=== PATIENT | male | born 1955 | race Caucasian/White ===

== ENCOUNTER 2017-05-24 16:02 | Inpatient (IN) | payer BC, OTHER ==
[2017-05-24] MEDS ORDERED: Albuterol/Ipratropium 3.0-0.5 MG/3 ML Neb Soln NEB ONE (16:31)
[2017-05-24] MEDS ORDERED: Sodium Chloride 0.9% 10 ML Syringe FLUSH PRN ×2 (16:31→17:53)
--- NOTE | 2017-05-24 16:35 | EDM.PDOC ---
ED HPI GENERAL MEDICAL PROBLEM - General Chief Complaint: Respiratory Problem Stated Complaint: ASTHMA Time Seen by Provider: 05/24/17 16:25 Source of Information: Reports: Patient History Limitations: Reports: No Limitations - History of Present Illness INITIAL COMMENTS - FREE TEXT/NARRATIVE: Patient is a 61-year-old male presents to the ED complaining of shortness of breath. Patient states this has been getting progressively worse over the past week. He has some underlying chronic lung disease with unknown diagnosis. States he did smoke for many years up until this past January. He has been taking albuterol inhaler, similar, and also inhaled steroids as prescribed. States today due to increasing shortness of breath he was seen at the [place] [facility] and administered albuterol neb treatment, steroid injection, and doxycycline. He states he felt better for approximately 3 hours then started experiencing increasing short of breath. States his chest feels tight with onset of shortness of breath. Upon admission to the ED patient is only speaking in 2-4 words sentences with pursed lips. O2 saturation 85% on room air. O2 sats increased with O2 via nasal cannula. Patient has a chronic cough unchanged. Chest pressure/tightness does not radiate. No fever. No history of blood clots to his lungs or legs. Chest Pain Score (Numeric/FACES): 4 - Related Data Allergies Allergy/AdvReac Type Severity Reaction Status Date / Time No Known Allergies Allergy Verified 05/24/17 16:17 Home Meds: Home Meds . [No Known Home Meds] 05/24/17 [History] Albuterol [Ventolin HFA] 2 puff INH Q4HR PRN 05/24/17 [History] Doxycycline [Doxycycline Monohydrate] 100 mg PO BID 05/24/17 [History] Ipratropium/Albuterol Sulfate [Iprat-Albut 0.5-3(2.5) mg/3 ml] 3 ml INH Q6HR PRN 05/24/17 [History] Lisinopril 10 mg PO DAILY 05/24/17 [History] Montelukast [Singulair] 10 mg PO DAILY 05/24/17 [History] Past Medical History Respiratory History: Reports: Asthma, Sleep Apnea Musculoskeletal History: Reports: Fracture Other Musculoskeletal History: previous rib fx's Oncologic (Cancer) History: Reports: Prostate - Past Surgical History HEENT Surgical History: Reports: Other (See Below) Social & Family History - Tobacco Use Smoking Status *Q: Current Every Day Smoker Years of Tobacco use: 42 Packs/Tins Daily: 2 Second Hand Smoke Exposure: No - Recreational Drug Use Recreational Drug Use: No - Living Situation & Occupation Living situation: Reports: , with Family Occupation: Employed ED ROS GENERAL - Review of Systems Review Of Systems: ROS reveals no pertinent complaints other than HPI. ED EXAM, GENERAL - Physical Exam Exam: See Below Exam Limited By: No Limitations General Appearance: Alert, WD/WN, Other (Family short of breath with pursed lips breathing.) Ears: Hearing Grossly Normal Nose: Normal Inspection Throat/Mouth: Normal Voice, No Airway Compromise Head: Atraumatic, Normocephalic Neck: Normal Inspection, Supple Respiratory/Chest: No Respiratory Distress, No Accessory Muscle Use, Other ( Poor air movement with coarse crackles and expiratory wheezing more prominent in the right lung field.) Cardiovascular: Normal Peripheral Pulses, No Murmur, Tachycardia Peripheral Pulses: 4+: Radial (L) GI/Abdominal: Normal Bowel Sounds, Soft, Non-Tender, No Organomegaly, No Distention Extremities: Non-Tender, Normal Capillary Refill, Other (Swelling noted to the left leg secondary to varicose veins surgery. Chronic no new changes. No posterior thigh tenderness with palpation.) Neurological: Alert, Oriented, CN II-XII Intact, Normal Cognition, No Motor/ Sensory Deficits Psychiatric: Normal Affect, Normal Mood Skin Exam: Warm, Dry, Intact, Normal Color Course - Vital Signs Last Recorded V/S: Last Vital Signs Temp 98.6 F 05/24/17 20:50 Pulse 97 05/24/17 20:34 Resp 22 H 05/24/17 20:34 BP 171/99 H 05/24/17 20:34 Pulse Ox 94 L 05/24/17 20:34 - Orders/Labs/Meds Orders: Active Orders 24 hr Category Date Time Status Chest 1V Frontal [CR] Stat Exams 05/24/17 16:31 Taken Sodium Chloride 0.9% [Normal Saline] 100 ml Med 05/24/17 18:00 Active IV ASDIRECTED Sodium Chloride 0.9% [Saline Flush] Med 05/24/17 16:31 Active 10 ml FLUSH ASDIRECTED PRN Sodium Chloride 0.9% [Saline Flush] Med 05/24/17 17:53 Active 10 ml FLUSH ONETIME PRN Peripheral IV Insertion Adult [OM.PC] Stat Oth 05/24/17 16:31 Ordered Medication Orders Acetaminophen (Tylenol) 650 mg PO Q4H PRN PRN Reason: Pain (Mild 1-3)/fever Hydrocodone Bitart/Acetaminophen ([place] 325-5 Mg) 1 tab PO Q4H PRN PRN Reason: Pain (moderate 4-6) Albuterol/Ipratropium (Duoneb 3.0-0.5 Mg/3 Ml) 3 ml NEB Q4H PRN PRN Reason: Shortness Of Breath/wheezing Azithromycin (Zithromax) 250 mg PO DAILY [facility]NIS Bisacodyl (Dulcolax) 5 mg PO DAILY PRN PRN Reason: Constipation Docusate Sodium (Colace) 100 mg PO BID PRN PRN Reason: Constipation Enoxaparin Sodium (Lovenox) 40 mg SUBCUT DAILY [facility] Hydralazine HCl (Apresoline) 20 mg IVPUSH Q4H PRN PRN Reason: Hypertension Sodium Chloride (Normal Saline) 100 mls @ 65 mls/hr IV ASDIRECTED [facility] Last Admin: 05/24/17 18:32 Dose: 65 mls/hr Promethazine HCl 12.5 mg/ (Sodium Chloride) 50.5 mls @ 100 mls/hr IV Q6H PRN PRN Reason: Nausea/Vomiting Azithromycin 500 mg/ Sodium (Chloride) 250 mls @ 250 mls/hr IV ONETIME ONE Stop: 05/24/17 23:08 Lisinopril (Prinivil) 10 mg PO DAILY [facility] Lorazepam (Ativan) 1 mg IV Q6H PRN PRN Reason: Anxiety Lorazepam (Ativan) 2 mg IVPUSH Q4H PRN PRN Reason: Seizures Magnesium Sulfate (Pharmacy To Dose - Magnesium Replacement) 1 dose .XX ASDIRECTED [facility] Metoprolol Tartrate (Lopressor) 5 mg IVPUSH Q4H PRN PRN Reason: Tachycardia Montelukast Sodium (Singulair) 10 mg PO DAILY [facility] Ondansetron HCl (Zofran) 4 mg IV Q6H PRN PRN Reason: Nausea/Vomiting Pantoprazole Sodium (Protonix Iv) 40 mg .XX ONETIME ONE Stop: 05/24/17 22:01 Polyethylene Glycol (Miralax) 17 gm PO DAILY PRN PRN Reason: Constipation Potassium Chloride (Pharmacy To Dose - Potassium Replacement) 1 dose .XX ASDIRECTED DENNIS Prednisone (Prednisone) 60 mg PO WITHBREAKFAST [facility]NIS Senna/Docusate Sodium (Senna Plus) 1 tab PO BID PRN PRN Reason: Constipation Sodium Chloride (Saline Flush) 10 ml FLUSH ASDIRECTED PRN PRN Reason: Keep Vein Open Last Admin: 05/24/17 17:14 Dose: 10 ml Sodium Chloride (Saline Flush) 10 ml FLUSH ONETIME PRN PRN Reason: IV FLUSH Last Admin: 05/24/17 18:32 Dose: 10 ml Temazepam (Restoril) 15 mg PO BEDTIME PRN PRN Reason: Sleep Labs: Laboratory Tests 05/24/17 05/24/17 05/24/17 Range/Units 16:30 16:30 16:58 WBC 8.09 (4.23-9.07) K/mm3 RBC 5.23 (4.63-6.08) M/mm3 Hgb 15.9 (13.7-17.5) gm/L Hct 49.1 (40.1-51.0) % MCV 93.9 H (79.0-92.2) fl MCH 30.4 (25.7-32.2) pg MCHC 32.4 (32.2-35.5) g/dl RDW Std Deviation 47.0 H (35.1-43.9) fL Plt Count 219 (163-337) K/mm3 MPV 9.3 L (9.4-12.3) fl Neut % (Auto) 91.7 H (34.0-67.9) % Lymph % (Auto) 6.6 L (21.8-53.1) % [place] % (Auto) 0.7 L (5.3-12.2) % Eos % (Auto) 0.1 L (0.8-7.0) Baso % (Auto) 0.4 (0.1-1.2) % Neut # (Auto) 7.42 H (1.78-5.38) K/mm3 Lymph # (Auto) 0.53 L (1.32-3.57) K/mm3 [place] # (Auto) 0.06 L (0.30-0.82) K/mm3 Eos # (Auto) 0.01 L (0.04-0.54) K/mm3 Baso # (Auto) 0.03 (0.01-0.08) K/mm3 Manual Slide Review Normal smear Puncture Site Lt radial ABG pH 7.43 (7.35-7.45) ABG pCO2 39.2 (35.0-45.0) mmHg ABG pO2 56.0 L (80.0-100.0) mmHg ABG HCO3 25.5 (22.0-26.0) meq/L ABG O2 Saturation 90.7 L (96.0-97.0) % ABG Base Excess 1.7 (-2-2.0) Raman Test Positive A-a Gradient 74 mmHg O2 Delivery Device Nasal cannula Oxygen Flow Rate 2.0 FiO2 28.00 (21.00-100.00) % Sodium 141 (136-145) mEq/L Potassium 4.4 (3.5-5.1) mEq/L Chloride 103 (98-107) mEq/L Carbon Dioxide 26 (21-32) mEq/L Anion Gap 16.4 H (5-15) BUN 20 H (7-18) mg/dL Creatinine 1.2 (0.7-1.3) mg/dL Est Cr Clr Drug Dosing 67.11 mL/min Estimated GFR (MDRD) > 60 (>60) mL/min BUN/Creatinine Ratio 16.7 (14-18) Glucose 192 H (80-115) mg/dL Calcium 9.1 (8.5-10.1) mg/dL Total Bilirubin 0.4 (0.2-1.0) mg/dL AST 26 (15-37) U/L ALT 39 (16-63) U/L Alkaline Phosphatase 63 (46-116) U/L Troponin I < 0.017 (0.00-0.056) ng/mL C-Reactive Protein < 0.2 (<1.0) mg/dL Total Protein 7.4 (6.4-8.2) g/dl Albumin 3.6 (3.4-5.0) g/dl Globulin 3.8 gm/dL Albumin/Globulin Ratio 1.0 (1-2) Meds: Medications Generic Name Dose Route Start Last Admin Trade Name Freq PRN Reason Stop Dose Admin Acetaminophen 650 mg 02/18/18 22:00 Tylenol PO Q4H PRN Pain (Mild 1-3)/fever Hydrocodone Bitart/Acetaminophen 1 tab 05/24/17 22:00 [place] 325-5 Mg PO Q4H PRN Pain (moderate 4-6) Albuterol/Ipratropium 3 ml 05/24/17 22:00 Duoneb 3.0-0.5 Mg/3 Ml NEB Q4H PRN Shortness Of Breath/wheezing Azithromycin 250 mg 05/25/17 09:00 Zithromax PO DAILY [facility] Bisacodyl 5 mg 05/24/17 22:00 Dulcolax PO DAILY PRN Constipation Docusate Sodium 100 mg 05/24/17 22:00 Colace PO BID PRN Constipation Enoxaparin Sodium 40 mg 05/25/17 09:00 Lovenox SUBCUT DAILY [facility] Hydralazine HCl 20 mg 05/24/17 22:07 Apresoline IVPUSH Q4H PRN Hypertension Sodium Chloride 100 mls @ 65 mls/hr 05/24/17 18:00 05/24/17 18:32 Normal Saline IV 65 mls/hr ASDIRECTED [facility] Administration Promethazine HCl 12.5 mg/ 50.5 mls @ 100 mls/hr 05/24/17 22:00 Sodium Chloride IV Q6H PRN Nausea/Vomiting Azithromycin 500 mg/ Sodium 250 mls @ 250 mls/hr 05/24/17 22:09 Chloride IV 05/24/17 23:08 ONETIME ONE Lisinopril 10 mg 05/25/17 09:00 Prinivil PO DAILY [facility] Lorazepam 1 mg 05/24/17 22:00 Ativan IV Q6H PRN Anxiety Lorazepam 2 mg 05/24/17 22:07 Ativan IVPUSH Q4H PRN Seizures Magnesium Sulfate 1 dose 05/24/17 22:15 Pharmacy To Dose - Magnesium Replacement .XX ASDIRECTED [facility] Metoprolol Tartrate 5 mg 05/24/17 22:07 Lopressor IVPUSH Q4H PRN Tachycardia Montelukast Sodium 10 mg 05/25/17 09:00 Singulair PO DAILY [facility] Ondansetron HCl 4 mg 05/24/17 22:00 Zofran IV Q6H PRN Nausea/Vomiting Pantoprazole Sodium 40 mg 05/24/17 22:00 Protonix Iv .XX 05/24/17 22:01 ONETIME ONE Polyethylene Glycol 17 gm 05/24/17 22:00 Miralax PO DAILY PRN Constipation Potassium Chloride 1 dose 05/24/17 22:15 Pharmacy To Dose - Potassium Replacement .XX ASDIRECTED [facility] Prednisone 60 mg 05/25/17 07:00 Prednisone PO WITHBREAKFAST DENNIS Senna/Docusate Sodium 1 tab 05/24/17 22:00 Senna Plus PO BID PRN Constipation Sodium Chloride 10 ml 05/24/17 16:31 05/24/17 17:14 Saline Flush FLUSH 10 ml ASDIRECTED PRN Administration Keep Vein Open Sodium Chloride 10 ml 05/24/17 17:53 05/24/17 18:32 Saline Flush FLUSH 10 ml ONETIME PRN Administration IV FLUSH Temazepam 15 mg 05/24/17 22:00 Restoril PO BEDTIME PRN Sleep Discontinued Medications Generic Name Dose Route Start Last Admin Trade Name Freq PRN Reason Stop Dose Admin Albuterol/Ipratropium 3 ml 05/24/17 16:31 05/24/17 16:49 Duoneb 3.0-0.5 Mg/3 Ml NEB 05/24/17 16:32 3 ml ONETIME ONE Administration Iopamidol 100 ml 05/24/17 17:53 05/24/17 18:32 [id number] (76%) IVPUSH 05/24/17 17:54 100 ml ONETIME ONE Administration Iopamidol 50 ml 05/24/17 17:53 05/24/17 18:32 [id number] (76%) IVPUSH 05/24/17 17:54 50 ml ONETIME ONE Administration Levalbuterol HCl 1.25 mg 05/24/17 18:40 05/24/17 18:54 Xopenex NEB 05/24/17 18:41 1.25 mg ONETIME ONE Administration Pneumococcal Polyvalent Vaccine 0.5 ml 05/24/17 21:12 Pneumovax 23 IM 05/24/17 21:13 .ONCE ONE Prednisone 60 mg 05/24/17 19:17 05/24/17 19:27 Prednisone PO 05/24/17 19:18 60 mg ONETIME ONE Administration - Re-Assessments/Exams Free Text/Narrative Re-Assessment/Exam: IV established. Initial labs and studies include: CBC, chem 14, blood gas, CRP, d-dimer, troponin, chest x-ray one view, and EKG. Ordered DuoNeb treatment. EKG sinus rhythm with no acute ST changes noted. Chest x-ray shows possible infiltrate noted to the right lower lung base and also left hilar region. No cardiomegaly. Old #7 right rib fracture. Hyperinflation lung spears. Final interpretation is pending. Labs reviewed: White blood cell count 8.09, hemoglobin 15.9, platelet count is 219, neutrophil percentage is 91.7, neutrophil number is 7.42, AG 16.4, albumin 20, creatinine 1.2, glucose 182, troponin less than 0.017, CRP less than 0.2. Blood gas: PH 7.43, PCO2 39.2, PO2 50 60, HCO3 25.5, O2 saturation 90.7 low, via nasal cannula [address] angios of the chest will be obtained. Ordered levalbuterol neb treatment. CTangio is still pending. CT angios chest impression: No findings of pulmonary embolus. Slight fibrosis with in both lung bases and mild emphysematous change is seen within both lungs. No acute pulmonary densities are seen. 190 patient's nasal cannula was discontinued. Breathing through pursed lips. O2 sats decreased to 87 on room air while at rest. O2 via Nasal cannula 2 L/m started. Discussed admission to the hospital for hypoxiaand exacerbation of COPD. Patient is agreement. Will contact Dr. Lovett. Ordered prednisone 60mg PO. 05/24/17 19:[address] 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 He has agreed to admit. MCG will be completed. Departure - Departure Time of Disposition: 19:23 Disposition: Admitted As Inpatient 64 Condition: Fair Clinical Impression: Hypoxia, Shortness of breath - Discharge Information - My Orders Last 24 Hours: My Active Orders 05/24/17 16:31 Chest 1V Frontal [CR] Stat Sodium Chloride 0.9% [Saline Flush] 10 ml FLUSH ASDIRECTED PRN Peripheral IV Insertion Adult [OM.PC] Stat 05/24/17 17:53 Sodium Chloride 0.9% [Saline Flush] 10 ml FLUSH ONETIME PRN 05/24/17 18:00 Sodium Chloride 0.9% [Normal Saline] 100 ml IV ASDIRECTED - Assessment/Plan Last 24 Hours: My Active Orders 05/24/17 16:31 Chest 1V Frontal [CR] Stat Sodium Chloride 0.9% [Saline Flush] 10 ml FLUSH ASDIRECTED PRN Peripheral IV Insertion Adult [OM.PC] Stat 05/24/17 17:53 Sodium Chloride 0.9% [Saline Flush] 10 ml FLUSH ONETIME PRN 05/24/17 18:00 Sodium Chloride 0.9% [Normal Saline] 100 ml IV ASDIRECTED
[2017-05-24] MEDS ORDERED: Iopamidol 755 MG/ML 50 ML Bottle IVPUSH ONE (17:53)
[2017-05-24] MEDS ORDERED: Iopamidol 755 Mg/ML 100 ML Bottle IVPUSH ONE (17:53)
[2017-05-24] MEDS ORDERED: Sodium Chloride 0.9% 100 ML IV SCH (18:00)
[2017-05-24] MEDS ORDERED: Levalbuterol HCl 1.25 MG/0.5 ML Neb NEB ONE (18:40)
--- NOTE | 2017-05-24 18:59 | CT ---
CT chest Technique: Multiple axial sections through the chest were obtained. Intravenous contrast was utilized. Study has been performed as a pulmonary angiogram protocol. Comparison: Prior chest CT of 09/09/15. Findings: Pulmonary arteries are well-opacified. No filling defects are seen to indicate pulmonary embolism. Mildly prominent lymph nodes are seen within the right hilum and within the mediastinum. These appear to be fairly stable from previous CT exam and likely represent change from old inflammatory process. Small portion of the visualized upper abdominal structures are within normal limits. No pericardial thickening is seen. Minimal fibrosis is seen within both lung bases. Mild emphysematous change is seen. No acute parenchymal densities are seen. Impression: 1. No findings of pulmonary embolism. 2. Slight fibrosis within both lung bases and mild emphysematous change is seen within both lungs. 3. No acute pulmonary densities are seen. Diagnostic code #3
[2017-05-24] MEDS ORDERED: predniSONE 20 MG Tab PO ONE (19:17)
[2017-05-24] MEDS ORDERED: Pneumococcal Polyvalent-23 Vaccine 0.5 ML SDV IM ONE (21:12)
[2017-05-24] MEDS ORDERED: Promethazine 12.5 MG in Sodium Chloride 0.9% 50 ML IV PRN (22:00)
[2017-05-24] MEDS ORDERED: Temazepam 15 MG Cap PO PRN (22:00)
[2017-05-24] MEDS ORDERED: Acetaminophen/HYDROcodone 325-5 MG Tab PO PRN (22:00)
[2017-05-24] MEDS ORDERED: Docusate Sodium 100 MG Cap PO PRN (22:00)
[2017-05-24] MEDS ORDERED: LORazepam 2 MG/ML SDV IV PRN (22:00)
[2017-05-24] MEDS ORDERED: Acetaminophen 325 MG Tab PO PRN (22:00)
[2017-05-24] MEDS ORDERED: Polyethylene Glycol 3350 Powder 17 GM Packet PO PRN (22:00)
[2017-05-24] MEDS ORDERED: Ondansetron 4 MG/2 ML SDV IV PRN (22:00)
[2017-05-24] MEDS ORDERED: Bisacodyl 5 MG Tab PO PRN (22:00)
[2017-05-24] MEDS ORDERED: hydrALAZINE 20 MG/ML SDV IVPUSH PRN (22:07)
[2017-05-24] MEDS ORDERED: Metoprolol Tartrate 5 MG/5 ML SDV IVPUSH PRN (22:07)
[2017-05-24] MEDS ORDERED: LORazepam 2 MG/ML SDV IVPUSH PRN (22:07)
--- NOTE | 2017-05-24 22:11 | PCM.HP ---
H&P History of Present Illness - General Date of Service: 05/24/17 Admit Problem/Dx: Admission Diagnosis/Problem Admission Diagnosis/Problem Hypoxia Source of Information: Patient, Provider, RN Notes Reviewed History Limitations: Reports: Respiratory Distress - History of Present Illness Initial Comments - Free Text/Narative: This is a 61 yo white male with past medical hx/o Asthma/RAD and HTN who presents to ED with worsening shortness of breath that has been going on over the past week. He carries a hx/o heavy smoking for many years but quit 2 months ago. He has a neb at home to use for asthma attack. Patient was seen over at [facility] clinic. Over there, he received some breathing treatment but did not last long before his symptom re-occurred. His symptom is associated with dyspnea/chest tightness and chronic cough. On presentation to ED, he was found with an O2 sat of 85% and only able to speak 2-4 words only. His initial work up in ED shows, a CBC remarkable for MCV of 92.9, RDW 47, neutrophils of 91.7%, lymphocytes of 6.6%, monocytes of 0.7%, and eosinophils of 0.1%. His ABG shows a pH of 7.43, PCO2 of 39.2, PO2 of 56, HCO3 of 25.5, O2 sat of 90.7 on 3 L nasal cannula with an FiO2 of 28. He is chemistry is remarkable for anion gap of 16.4, BUN of 20, glucose of 192. His troponin and CRP are within normal limits. His chest x-ray shows no acute abnormal findings. His chest CTA report reads no pulmonary embolism. Slight fibrosis within both lungs bases and mild emphysematous change is seen within both lungs. No acute pulmonary densities are seen. Patient is being admitted for exacerbation of reactive airway disease. He is full code. Chest Pain Score (Numeric/FACES): 4 - Related Data Allergies/Adverse Reactions: Allergies Allergy/AdvReac Type Severity Reaction Status Date / Time No Known Allergies Allergy Verified 05/24/17 16:17 Home Medications: Home Meds . [No Known Home Meds] 05/24/17 [History] Albuterol [Ventolin HFA] 2 puff INH Q4HR PRN 05/24/17 [History] Doxycycline [Doxycycline Monohydrate] 100 mg PO BID 05/24/17 [History] Ipratropium/Albuterol Sulfate [Iprat-Albut 0.5-3(2.5) mg/3 ml] 3 ml INH Q6HR PRN 05/24/17 [History] Lisinopril 10 mg PO DAILY 05/24/17 [History] Montelukast [Singulair] 10 mg PO DAILY 05/24/17 [History] Past Medical History HEENT History: Reports: None Cardiovascular History: Reports: High Cholesterol, Hypertension Respiratory History: Reports: Asthma, Bronchitis, Recurrent, Sleep Apnea Gastrointestinal History: Reports: Colon Polyp, Hemorrhoids Genitourinary History: Reports: None Musculoskeletal History: Reports: Fracture Other Musculoskeletal History: previous rib fx's Neurological History: Reports: None Psychiatric History: Reports: None Hematologic History: Reports: None Oncologic (Cancer) History: Reports: Prostate Dermatologic History: Reports: None - Infectious Disease History Infectious Disease History: Reports: None - Past Surgical History HEENT Surgical History: Reports: Other (See Below) Other HEENT Surgeries/Procedures: sleep apnea surgery Cardiovascular Surgical History: Reports: Varicose, Other (See Below) Other Cardiovascular Surgeries/Procedures: bilateral legs Respiratory Surgical History: Reports: None GI Surgical History: Reports: Appendectomy, Other (See Below) Other GI Surgeries/Procedures: polyps removed Male Surgical History: Reports: Prostatectomy Musculoskeletal Surgical History: Reports: None Dermatological Surgical History: Reports: None Social & Family History - Family History Family Medical History: Noncontributory - Tobacco Use Smoking Status *Q: Current Every Day Smoker Years of Tobacco use: 40 Packs/Tins Daily: 1.5 Used Tobacco, but Quit: No Month Tobacco Last Used: january Second Hand Smoke Exposure: Yes - Caffeine Use Caffeine Use: Reports: Coffee - Alcohol Use Days Per Week of Alcohol Use: 1 Number of Drinks Per Day: 2 Total Drinks Per Week: 2 - Recreational Drug Use Recreational Drug Use: No - Living Situation & Occupation Living situation: Reports: , with Family Occupation: Employed H&P Review of Systems - Review of Systems: Review Of Systems: See Below General: Denies: Fever, Chills, Malaise, Weakness, Fatigue HEENT: Reports: No Symptoms Pulmonary: Reports: Shortness of Breath Cardiovascular: Reports: Dyspnea on Exertion. Denies: Chest Pain Gastrointestinal: Denies: Abdominal Pain, Decreased Appetite, Nausea, Vomiting Genitourinary: Reports: No Symptoms Musculoskeletal: Reports: No Symptoms Skin: Reports: Bruising, Rash, Wound. Denies: Cyanosis, Mottled, Pallor, Diaphoresis, Erythema Psychiatric: Denies: Confusion, Depression, Anxiety, Hallucinations, Suicidal Ideation Neurological: Denies: Confusion, Difficulty Walking, Weakness, Gait Disturbance Hematologic/Lymphatic: Reports: No Symptoms Immunologic: Reports: No Symptoms Exam - Exam Exam: See Below - Vital Signs Vital Signs: Last Vital Signs Temp 37.0 C 05/24/17 20:50 Pulse 97 05/24/17 20:34 Resp 22 H 05/24/17 20:34 BP 171/99 H 05/24/17 20:34 Pulse Ox 94 L 05/24/17 20:34 Weight: 114.895 kg - Exam General: Alert, Oriented, Cooperative, Mild Distress, Other (Obese) HEENT: Conjunctiva Clear, EACs Clear, EOMI, Hearing Intact, Mucosa Moist & [place] , Nares Patent, Normal Nasal Septum, Posterior Pharynx Clear, Pupils Equal, Pupils Reactive Neck: Supple, Trachea Midline, +2 Carotid Pulse wo Bruit Lungs: Clear to Auscultation, Normal Respiratory Effort Cardiovascular: Regular Rate, Regular Rhythm GI/Abdominal Exam: Normal Bowel Sounds, Soft, Non-Tender, No Organomegaly, No Distention, No Abnormal Bruit, No Mass, Pelvis Stable, Other (Obese) (Male) Exam: Deferred Rectal (Males) Exam: Deferred Back Exam: Normal Inspection, Decreased Range of Motion Extremities: Normal Range of Motion, Non-Tender, No Pedal Edema, Normal Capillary Refill, Redness (right lower extremity). No: Normal Inspection, Harry 's Sign, Increased Warmth Peripheral Pulses: 2+: Posterior Tibial (R), Dorsalis Pedis (R), 3+: Posterior Tibial (L), Dorsalis Pedis (L) Skin: Warm, Dry, Intact, Rash Skin Alteration Location (Drawings Not To Scale): 1 - skin rash - diffuse with multiple lesions Neuro Extensive - Mental Status: Oriented x3, Normal Cognition, Memory Intact Neuro Extensive - Motor, Sensory, Reflexes: CN II-XII Intact, Normal Gait Psychiatric: Alert, Normal Affect, Normal Mood - Patient Data Result Diagrams: 05/25/17 05:40 05/25/17 05:40 *Q Meaningful Use (ADM) - VTE *Q VTE Criteria *Q: - Stroke *Q Stroke Criteria *Q: - AMI *Q AMI Criteria *Q: Problem List Initiated/Reviewed/Updated: Yes Orders Last 24hrs: Active Orders 24 hr Category Date Time Status Cardiac Monitoring [RC] CONTINUOUS Care 05/24/17 22:04 Ordered Height and Weight [RC] DAILY Care 05/24/17 22:00 Ordered Intake and Output [RC] QSHIFT Care 05/24/17 22:04 Ordered Oxygen Therapy [RC] PRN Care 05/24/17 22:03 Ordered Pulse Oximetry [RC] PRN Care 05/24/17 22:04 Ordered RT Aerosol Therapy [RC] ASDIRECTED Care 05/24/17 22:05 Ordered Up ad Sabrina [RC] ASDIRECTED Care 05/24/17 22:00 Ordered VTE/DVT Education [RC] PER UNIT ROUTINE Care 05/24/17 22:03 Ordered Vital Signs [RC] Q4H Care 05/24/17 22:03 Ordered Consult to Case Management [CONS] Routine Cons 05/24/17 22:06 Ordered Consult to Solar [employer] He[employer] Installer [CONS] Routine Cons 05/24/17 22:06 Ordered Consult to Spiritual Care [CONS] Routine Cons 05/24/17 22:06 Ordered Respiratory Care Assess and Treatment [CONS] Routine Cons 05/24/17 22:06 Ordered Regular Diet [DIET] Diet 05/24/17 Dinner Ordered Echo Comp wo Cont [US] Routine Exams 05/25/17 07:00 Ordered BASIC METABOLIC PANEL,BMP [CHEM] AM Lab 05/25/17 05:11 Ordered BASIC METABOLIC PANEL,BMP [CHEM] AM Lab 05/26/17 05:11 Ordered BASIC METABOLIC PANEL,BMP [CHEM] AM Lab 05/27/17 05:11 Ordered BASIC METABOLIC PANEL,BMP [CHEM] AM Lab 05/28/17 05:11 Ordered BASIC METABOLIC PANEL,BMP [CHEM] AM Lab 05/29/17 05:11 Ordered BASIC METABOLIC PANEL,BMP [CHEM] AM Lab 05/30/17 05:11 Ordered C-REACTIVE PROTEIN [CHEM] AM Lab 05/25/17 05:11 Ordered C-REACTIVE PROTEIN [CHEM] AM Lab 05/26/17 05:11 Ordered C-REACTIVE PROTEIN [CHEM] AM Lab 05/27/17 05:11 Ordered C-REACTIVE PROTEIN [CHEM] AM Lab 05/28/17 05:11 Ordered C-REACTIVE PROTEIN [CHEM] AM Lab 05/29/17 05:11 Ordered C-REACTIVE PROTEIN [CHEM] AM Lab 05/30/17 05:11 Ordered CBC WITH AUTO DIFF [HEME] AM Lab 05/25/17 05:11 Ordered CBC WITH AUTO DIFF [HEME] AM Lab 05/26/17 05:11 Ordered CBC WITH AUTO DIFF [HEME] AM Lab 05/27/17 05:11 Ordered CBC WITH AUTO DIFF [HEME] AM Lab 05/28/17 05:11 Ordered CBC WITH AUTO DIFF [HEME] AM Lab 05/29/17 05:11 Ordered CBC WITH AUTO DIFF [HEME] AM Lab 05/30/17 05:11 Ordered MAGNESIUM [CHEM] AM Lab 05/25/17 05:11 Ordered MAGNESIUM [CHEM] AM Lab 05/26/17 05:11 Ordered MAGNESIUM [CHEM] AM Lab 05/27/17 05:11 Ordered MAGNESIUM [CHEM] AM Lab 05/28/17 05:11 Ordered MAGNESIUM [CHEM] AM Lab 05/29/17 05:11 Ordered MAGNESIUM [CHEM] AM Lab 05/30/17 05:11 Ordered Acetaminophen [Tylenol] Med 05/24/17 22:00 Ordered 650 mg PO Q4H PRN Acetaminophen/HYDROcodone [[place] 325-5 MG] Med 05/24/17 22:00 Ordered 1 tab PO Q4H PRN Albuterol/Ipratropium [DuoNeb 3.0-0.5 MG/3 ML] Med 05/24/17 22:00 Ordered 3 ml NEB Q4H PRN Azithromycin [Zithromax] Med 05/25/17 09:00 Ordered 250 mg PO DAILY Azithromycin [Zithromax] 500 mg Med 05/24/17 22:09 Ordered Sodium Chloride 0.9% [Normal Saline] 250 ml IV ONETIME Bisacodyl [Dulcolax] Med 05/24/17 22:00 Ordered 5 mg PO DAILY PRN Docusate Sodium [Colace] Med 05/24/17 22:00 Ordered 100 mg PO BID PRN Docusate Sodium/Sennosides [Senna Plus] Med 05/24/17 22:00 Ordered 1 tab PO BID PRN Enoxaparin [Lovenox] Med 05/25/17 09:00 Ordered 40 mg SUBCUT DAILY LORazepam [Ativan] Med 05/24/17 22:00 Ordered 1 mg IV Q6H PRN LORazepam [Ativan] Med 05/24/17 22:07 Ordered 2 mg IVPUSH Q4H PRN Lisinopril [Prinivil] Med 05/25/17 09:00 Ordered 10 mg PO DAILY Magnesium Rep Pharmacy to Dose [Pharmacy to Dose - Med 05/24/17 22:15 Ordered Magnesium Replacement] 1 dose .XX ASDIRECTED Metoprolol Tartrate [Lopressor] Med 05/24/17 22:07 Ordered 5 mg IVPUSH Q4H PRN Montelukast [Singulair] Med 05/25/17 09:00 Ordered 10 mg PO DAILY Ondansetron [Zofran] Med 05/24/17 22:00 Ordered 4 mg IV Q6H PRN Pantoprazole [ProTONIX IV] Med 05/24/17 22:00 Once 40 mg .XX ONETIME ONE Polyethylene Glycol 3350 [MiraLAX] Med 05/24/17 22:00 Ordered 17 gm PO DAILY PRN Potassium Rep Pharmacy to Dose [Pharmacy to Dose - Med 05/24/17 22:15 Ordered Potassium Replacement] 1 dose .XX ASDIRECTED Promethazine [Phenergan] 12.5 mg Med 05/24/17 22:00 Ordered Sodium Chloride 0.9% [Normal Saline] 50 ml IV Q6H Temazepam [Restoril] Med 05/24/17 22:00 Ordered 15 mg PO BEDTIME PRN hydrALAZINE [Apresoline] Med 05/24/17 22:07 Ordered 20 mg IVPUSH Q4H PRN predniSONE Med 05/25/17 07:00 Ordered 60 mg PO WITHBREAKFAST Resuscitation Status Routine Resus Stat 05/24/17 22:00 Ordered Medication Orders Acetaminophen (Tylenol) 650 mg PO Q4H PRN PRN Reason: Pain (Mild 1-3)/fever Hydrocodone Bitart/Acetaminophen ([place] 325-5 Mg) 1 tab PO Q4H PRN PRN Reason: Pain (moderate 4-6) Albuterol/Ipratropium (Duoneb 3.0-0.5 Mg/3 Ml) 3 ml NEB Q4H PRN PRN Reason: Shortness Of Breath/wheezing Azithromycin (Zithromax) 250 mg PO DAILY [facility] Bisacodyl (Dulcolax) 5 mg PO DAILY PRN PRN Reason: Constipation Docusate Sodium (Colace) 100 mg PO BID PRN PRN Reason: Constipation Enoxaparin Sodium (Lovenox) 40 mg SUBCUT DAILY [facility] Hydralazine HCl (Apresoline) 20 mg IVPUSH Q4H PRN PRN Reason: Hypertension Sodium Chloride (Normal Saline) 100 mls @ 65 mls/hr IV ASDIRECTED [facility] Last Admin: 05/24/17 18:32 Dose: 65 mls/hr Promethazine HCl 12.5 mg/ (Sodium Chloride) 50.5 mls @ 100 mls/hr IV Q6H PRN PRN Reason: Nausea/Vomiting Azithromycin 500 mg/ Sodium (Chloride) 250 mls @ 250 mls/hr IV ONETIME ONE Stop: 05/24/17 23:08 Lisinopril (Prinivil) 10 mg PO DAILY [facility] Lorazepam (Ativan) 1 mg IV Q6H PRN PRN Reason: Anxiety Lorazepam (Ativan) 2 mg IVPUSH Q4H PRN PRN Reason: Seizures Magnesium Sulfate (Pharmacy To Dose - Magnesium Replacement) 1 dose .XX ASDIRECTED [facility] Metoprolol Tartrate (Lopressor) 5 mg IVPUSH Q4H PRN PRN Reason: Tachycardia Montelukast Sodium (Singulair) 10 mg PO DAILY [facility] Ondansetron HCl (Zofran) 4 mg IV Q6H PRN PRN Reason: Nausea/Vomiting Pantoprazole Sodium (Protonix Iv) 40 mg .XX ONETIME ONE Stop: 05/24/17 22:01 Polyethylene Glycol (Miralax) 17 gm PO DAILY PRN PRN Reason: Constipation Potassium Chloride (Pharmacy To Dose - Potassium Replacement) 1 dose .XX ASDIRECTED [facility] Prednisone (Prednisone) 60 mg PO WITHBREAKFAST [facility] Senna/Docusate Sodium (Senna Plus) 1 tab PO BID PRN PRN Reason: Constipation Sodium Chloride (Saline Flush) 10 ml FLUSH ASDIRECTED PRN PRN Reason: Keep Vein Open Last Admin: 05/24/17 17:14 Dose: 10 ml Sodium Chloride (Saline Flush) 10 ml FLUSH ONETIME PRN PRN Reason: IV FLUSH Last Admin: 05/24/17 18:32 Dose: 10 ml Temazepam (Restoril) 15 mg PO BEDTIME PRN PRN Reason: Sleep Assessment/Plan Comment:: Assessment/Plan: Acute: RAD/Asthma Exacerbation - Has not had PFT in past - No formal diagnosis of COPD; will do PFT it in AM - Supplemental O2, Bronchodilators, Anti-inflammatory agent, Oral Steroids and Routine RT Care Interstitial Lung Disease - 2/2 Idiopathic Pulmonary Fibrosis - Risk factors: Hx/o Asthma, Smokers and Works in [employer] - CT scan: Slight fibrosis within both lung bases and mild emphysematous changes seen within both lungs - No good treatment but will provide supportive care - May benefit with Esbriet (pirfenidone) or OFEV (nintedanib)-defer to pulmonology - He need PFT to assess for RAD/COPD - He needs to see Pulmonology outpatient Nicotine Use Disorder - Smokes 1.5 ppd but quit 2 months Ago - No need for smoking cessation Chronic: Asthma/RAD SUZANNE Lower Extremity Skin Rash Prostate Disorder Hx/o Heavy Smoking Plan: Admit to the floor Routine AM Labs Resume Home Meds except Doxy 2D echo in AM for baseline and r/o Pulmonary HTN Topical steroid BID for skin rash RT consult PFT in AM SW/CM for d/c planning Needs Pulmonology eval after D/c Code status: 1
[2017-05-24] MEDS ORDERED: Pantoprazole 40 MG Vial ONE (22:30)
[2017-05-24] MEDS ORDERED: Azithromycin 500 MG in Sodium Chloride 0.9% 250 ML IV ONE (22:30)
[2017-05-25] MEDS: predniSONE 20 MG Tab PO SCH (06:36)
--- NOTE | 2017-05-25 08:25 | CR ---
Chest: Frontal view of the chest was obtained utilizing portable technique. Comparison: Prior chest x-ray of 09/04/15. Lung markings are slightly increased which appear stable from previous exam. Heart size is normal. Upper mediastinum within normal limits. Bony structures are grossly intact. Impression: 1. Nothing acute is appreciated on portable chest x-ray. Diagnostic code #2
[2017-05-25] MEDS: Azithromycin 250 MG Tab PO SCH (08:26)
[2017-05-25] MEDS: Montelukast 10 MG Tab PO SCH (08:26)
[2017-05-25] MEDS: Lisinopril 10 MG Tab PO SCH (08:26)
[2017-05-25] MEDS: Enoxaparin 40 MG/0.4 ML Syringe SUBCUT SCH (08:26)
[2017-05-25] MEDS ORDERED: Albuterol 0.083% 2.5 MG/3 ML Neb Soln NEB ONE (08:50)
--- NOTE | 2017-05-25 11:25 | PCM.PN ---
- General Info Date of Service: 05/25/17 Admission Dx/Problem (Free Text): Admission Diagnosis/Problem Admission Diagnosis/Problem Hypoxia Subjective Update: Follow Up Functional Status: Reports: Pain Controlled, Tolerating Diet, Ambulating, Urinating. Denies: New Symptoms - Review of Systems General: Denies: Fever, Weakness, Fatigue, Malaise HEENT: Reports: No Symptoms Pulmonary: Reports: Shortness of Breath. Denies: Cough, Sputum Cardiovascular: Denies: Chest Pain, Palpitations, Dyspnea on Exertion, Edema, Lightheadedness Gastrointestinal: Reports: No Symptoms. Denies: Abdominal Pain, Constipation, Decreased Appetite, Difficulty Swallowing, Nausea, Vomiting Genitourinary: Reports: No Symptoms Musculoskeletal: Reports: No Symptoms Skin: Reports: Rash. Denies: Cyanosis, Mottled, Pallor, Diaphoresis Neurological: Denies: Confusion, Difficulty Walking, Weakness, Gait Disturbance Psychiatric: Denies: Depression, Anxiety, Agitation, Hallucinations Systems Review Comment:: No significant overnight or acute issues. He slept pretty good last night. He feels much better this morning. He has no new complaints. - Patient Data Vitals - Most Recent: Last Vital Signs Temp 36.9 C 05/25/17 07:34 Pulse 78 05/25/17 07:34 Resp 19 05/25/17 07:34 BP 123/68 05/25/17 08:26 Pulse Ox 93 L 05/25/17 07:34 Weight - Most Recent: 114.895 kg I&O - Last 24 Hours: Intake & Output 05/24/17 05/25/17 05/25/17 22:59 06:59 14:59 Intake Total 250 180 Balance 250 180 Lab Results Last 24 Hours: Laboratory Results - last 24 hr 05/25/17 05/25/17 Range/Units 05:40 05:40 WBC 12.78 H (4.23-9.07) K/mm3 RBC 5.07 (4.63-6.08) M/mm3 Hgb 15.3 (13.7-17.5) gm/L Hct 47.2 (40.1-51.0) % MCV 93.1 H (79.0-92.2) fl MCH 30.2 (25.7-32.2) pg MCHC 32.4 (32.2-35.5) g/dl RDW Std Deviation 46.9 H (35.1-43.9) fL Plt Count 235 (163-337) K/mm3 MPV 9.5 (9.4-12.3) fl Neut % (Auto) 90.8 H (34.0-67.9) % Lymph % (Auto) 6.2 L (21.8-53.1) % [place] % (Auto) 2.7 L (5.3-12.2) % Eos % (Auto) 0 L (0.8-7.0) Baso % (Auto) 0.1 (0.1-1.2) % Neut # (Auto) 11.60 H (1.78-5.38) K/mm3 Lymph # (Auto) 0.79 L (1.32-3.57) K/mm3 [place] # (Auto) 0.35 (0.30-0.82) K/mm3 Eos # (Auto) 0.00 L (0.04-0.54) K/mm3 Baso # (Auto) 0.01 (0.01-0.08) K/mm3 Manual Slide Review Abnormal smear Sodium 144 (136-145) mEq/L Potassium 4.7 (3.5-5.1) mEq/L Chloride 109 H (98-107) mEq/L Carbon Dioxide 25 (21-32) mEq/L Anion Gap 14.7 (5-15) BUN 19 H (7-18) mg/dL Creatinine 0.8 (0.7-1.3) mg/dL Est Cr Clr Drug Dosing 100.66 mL/min Estimated GFR (MDRD) > 60 (>60) mL/min BUN/Creatinine Ratio 23.8 H (14-18) Glucose 140 H (80-115) mg/dL Calcium 8.8 (8.5-10.1) mg/dL Magnesium 2.0 (1.8-2.4) mg/dl C-Reactive Protein < 0.2 (<1.0) mg/dL Med Orders - Current: Current Medications Acetaminophen (Tylenol) 650 mg PO Q4H PRN PRN Reason: Pain (Mild 1-3)/fever Hydrocodone Bitart/Acetaminophen ([place] 325-5 Mg) 1 tab PO Q4H PRN PRN Reason: Pain (moderate 4-6) Albuterol/Ipratropium (Duoneb 3.0-0.5 Mg/3 Ml) 3 ml NEB Q4H PRN PRN Reason: Shortness Of Breath/wheezing Azithromycin (Zithromax) 250 mg PO DAILY [facility] Last Admin: 05/25/17 08:26 Dose: 250 mg Bisacodyl (Dulcolax) 5 mg PO DAILY PRN PRN Reason: Constipation Docusate Sodium (Colace) 100 mg PO BID PRN PRN Reason: Constipation Enoxaparin Sodium (Lovenox) 40 mg SUBCUT DAILY [facility] Last Admin: 05/25/17 08:26 Dose: 40 mg Hydralazine HCl (Apresoline) 20 mg IVPUSH Q4H PRN PRN Reason: Hypertension Promethazine HCl 12.5 mg/ (Sodium Chloride) 50.5 mls @ 100 mls/hr IV Q6H PRN PRN Reason: Nausea/Vomiting Lisinopril (Prinivil) 10 mg PO DAILY [facility] Last Admin: 05/25/17 08:26 Dose: 10 mg Lorazepam (Ativan) 1 mg IV Q6H PRN PRN Reason: Anxiety Lorazepam (Ativan) 2 mg IVPUSH Q4H PRN PRN Reason: Seizures Magnesium Sulfate (Pharmacy To Dose - Magnesium Replacement) 1 dose .XX ASDIRECTED [facility] Metoprolol Tartrate (Lopressor) 5 mg IVPUSH Q4H PRN PRN Reason: Tachycardia Montelukast Sodium (Singulair) 10 mg PO DAILY [facility] Last Admin: 05/25/17 08:26 Dose: 10 mg Ondansetron HCl (Zofran) 4 mg IV Q6H PRN PRN Reason: Nausea/Vomiting Polyethylene Glycol (Miralax) 17 gm PO DAILY PRN PRN Reason: Constipation Potassium Chloride (Pharmacy To Dose - Potassium Replacement) 1 dose .XX ASDIRECTED [facility] Prednisone (Prednisone) 60 mg PO WITHBREAKFAST [facility] Last Admin: 05/25/17 06:36 Dose: 60 mg Senna/Docusate Sodium (Senna Plus) 1 tab PO BID PRN PRN Reason: Constipation Sodium Chloride (Saline Flush) 10 ml FLUSH ASDIRECTED PRN PRN Reason: Keep Vein Open Last Admin: 05/24/17 17:14 Dose: 10 ml Sodium Chloride (Saline Flush) 10 ml FLUSH ONETIME PRN PRN Reason: IV FLUSH Last Admin: 05/24/17 18:32 Dose: 10 ml Temazepam (Restoril) 15 mg PO BEDTIME PRN PRN Reason: Sleep Triamcinolone Acetonide (Triamcinolone Acetonide 0.5%) 15 gm TOP BID [facility] Discontinued Medications Albuterol (Proventil Neb Soln) 2.5 mg NEB ONETIME ONE Stop: 05/25/17 08:51 Last Admin: 05/25/17 08:52 Dose: 2.5 mg Albuterol/Ipratropium (Duoneb 3.0-0.5 Mg/3 Ml) 3 ml NEB ONETIME ONE Stop: 05/24/17 16:32 Last Admin: 05/24/17 16:49 Dose: 3 ml Sodium Chloride (Normal Saline) 100 mls @ 65 mls/hr IV ASDIRECTED [facility]NIS Last Admin: 05/24/17 18:32 Dose: 65 mls/hr Azithromycin 500 mg/ Sodium (Chloride) 250 mls @ 250 mls/hr IV ONETIME ONE Stop: 05/24/17 23:29 Last Admin: 18 22:49 Dose: 250 mls/hr Iopamidol (Isovue-370 (76%)) 100 ml IVPUSH ONETIME ONE Stop: 05/24/17 17:54 Last Admin: 18 18:32 Dose: 100 ml Iopamidol (Isovue-370 (76%)) 50 ml IVPUSH ONETIME ONE Stop: 18 17:54 Last Admin: 18 18:32 Dose: 50 ml Levalbuterol HCl (Xopenex) 1.25 mg NEB ONETIME ONE Stop: 05/24/17 18:41 Last Admin: 18 18:54 Dose: 1.25 mg Pantoprazole Sodium (Protonix Iv) 40 mg .XX ONETIME ONE Stop: 05/24/17 22:31 Last Admin: 05/24/17 22:46 Dose: 40 mg Pneumococcal Polyvalent Vaccine (Pneumovax 23) 0.5 ml IM .ONCE ONE Stop: 05/24/17 21:13 Prednisone (Prednisone) 60 mg PO ONETIME ONE Stop: 05/24/17 19:18 Last Admin: 05/24/17 19:27 Dose: 60 mg - Exam Quality Assessment: Supplemental Oxygen General: Alert, Oriented, Cooperative, No Acute Distress, Other (Obese) HEENT: Pupils Equal, Pupils Reactive, EOMI, Mucous Membr. Moist/[place] Neck: Supple, Trachea Midline Lungs: Normal Respiratory Effort, Wheezing (mild) Cardiovascular: Regular Rate, Regular Rhythm GI/Abdominal Exam: Normal Bowel Sounds, Soft, Non-Tender, No Organomegaly, No Distention, No Abnormal Bruit, No Mass, Other (Obese) (Male) Exam: Deferred Back Exam: Normal Inspection, Decreased Range of Motion Extremities: Normal Inspection, Normal Range of Motion, Non-Tender, No Pedal Edema, Normal Capillary Refill Peripheral Pulses: 2+: Posterior Tibial (R), Dorsalis Pedis (R) Skin: Warm, Dry, Intact, Rash (right [place]ateral [place]) Neurological: No New Focal Deficit Psy/Mental Status: Alert, Normal Affect, Normal Mood - Problem List Review Problem List Initiated/Reviewed/Updated: Yes - My Orders Last 24 Hours: My Active Orders 05/24/17 22:00 Height and Weight [RC] 04 Up ad Sabrina [RC] ASDIRECTED Acetaminophen [Tylenol] 650 mg PO Q4H PRN Acetaminophen/HYDROcodone [[place] 325-5 MG] 1 tab PO Q4H PRN Albuterol/Ipratropium [DuoNeb 3.0-0.5 MG/3 ML] 3 ml NEB Q4H PRN Bisacodyl [Dulcolax] 5 mg PO DAILY PRN Docusate Sodium [Colace] 100 mg PO BID PRN Docusate Sodium/Sennosides [Senna Plus] 1 tab PO BID PRN LORazepam [Ativan] 1 mg IV Q6H PRN Ondansetron [Zofran] 4 mg IV Q6H PRN Polyethylene Glycol 3350 [MiraLAX] 17 gm PO DAILY PRN Promethazine [Phenergan] 12.5 mg Sodium Chloride 0.9% [Normal Saline] 50 ml IV Q6H Temazepam [Restoril] 15 mg PO BEDTIME PRN Resuscitation Status Routine 05/24/17 22:03 Oxygen Therapy [RC] PRN VTE/DVT Education [RC] PER UNIT ROUTINE Vital Signs [RC] Q4HR 05/24/17 22:04 Cardiac Monitoring [RC] CONTINUOUS Intake and Output [RC] 04,16 Pulse Oximetry [RC] PRN 05/24/17 22:05 RT Aerosol Therapy [RC] ASDIRECTED 05/24/17 22:06 Consult to Case Management [CONS] Routine Consult to Bread Distributor [CONS] Routine Consult to Spiritual Care [CONS] Routine Respiratory Care Assess and Treatment [CONS] Routine 05/24/17 22:07 LORazepam [Ativan] 2 mg IVPUSH Q4H PRN Metoprolol Tartrate [Lopressor] 5 mg IVPUSH Q4H PRN hydrALAZINE [Apresoline] 20 mg IVPUSH Q4H PRN 05/24/17 22:15 Magnesium Rep Pharmacy to Dose [Pharmacy to Dose - Magnesium Replacement] 1 dose .XX ASDIRECTED Potassium Rep Pharmacy to Dose [Pharmacy to Dose - Potassium Replacement] 1 dose .XX ASDIRECTED 05/24/17 Dinner Regular Diet [DIET] 05/25/17 07:00 Echo Comp wo Cont [US] Routine predniSONE 60 mg PO WITHBREAKFAST PFT with Bronchodilator [RT Spirometry with Bronchodilator] [RESPCARE] Routine 05/25/17 08:43 RT Aerosol Therapy [RC] ASDIRECTED 05/25/17 09:00 Azithromycin [Zithromax] 250 mg PO DAILY Enoxaparin [Lovenox] 40 mg SUBCUT DAILY Lisinopril [Prinivil] 10 mg PO DAILY Montelukast [Singulair] 10 mg PO DAILY Triamcinolone Acetonide [Triamcinolone Acetonide 0.5%] 15 gm TOP BID 05/26/17 05:11 BASIC METABOLIC PANEL,BMP [CHEM] AM C-REACTIVE PROTEIN [CHEM] AM CBC WITH AUTO DIFF [HEME] AM MAGNESIUM [CHEM] AM 05/27/17 05:11 BASIC METABOLIC PANEL,BMP [CHEM] AM C-REACTIVE PROTEIN [CHEM] AM CBC WITH AUTO DIFF [HEME] AM MAGNESIUM [CHEM] AM 05/28/17 05:11 BASIC METABOLIC PANEL,BMP [CHEM] AM C-REACTIVE PROTEIN [CHEM] AM CBC WITH AUTO DIFF [HEME] AM MAGNESIUM [CHEM] AM 05/29/17 05:11 BASIC METABOLIC PANEL,BMP [CHEM] AM C-REACTIVE PROTEIN [CHEM] AM CBC WITH AUTO DIFF [HEME] AM MAGNESIUM [CHEM] AM 05/30/17 05:11 BASIC METABOLIC PANEL,BMP [CHEM] AM C-REACTIVE PROTEIN [CHEM] AM CBC WITH AUTO DIFF [HEME] AM MAGNESIUM [CHEM] AM - Plan Plan:: Assessment/Plan: Acute: Interstitial Lung Disease - Likely 2/2 Idiopathic Pulmonary Fibrosis - Risk factors: Hx/o Asthma/RAD, Smokers and Works in [employer] - CT scan: Slight fibrosis within both lung bases and mild emphysematous changes seen within both lungs - No good treatment but will provide supportive care - May benefit with Esbriet (pirfenidone) or OFEV (nintedanib)-defer to pulmonology - Completed PFT-see report - He needs to see Pulmonology outpatient Severe COPD - Newly diagnosed - PFT shows FEV1 of 44 % Predicted (Severe Obstructive Airways Disease) - Continue Oral steroids, bronchodilators, anti-inflammatory agent, supplemental O2 and routine RT care - O2 assess at rest and with activity Nicotine Use Disorder - Smokes 1.5 ppd but quit 2 months Ago - No need for smoking cessation Chronic: Asthma/RAD SUZANNE not on CPAP Lower Extremity Skin Rash Prostate Disorder Plan: He is clinically better Continue current treatment Routine AM Labs 2D echo in AM for baseline Continue RT SW/CM for d/c planning Needs Pulmonology eval after D/c Code status: 1 Possible d/c in AM
[2017-05-25] MEDS: Triamcinolone Acetonide 0.5% Crm 15 GM Tube TOP SCH ×2 (11:29→21:27)
[2017-05-25] MEDS: Albuterol/Ipratropium 3.0-0.5 MG/3 ML Neb Soln NEB PRN ×2 (11:59→16:28)
[2017-05-26] MEDS: predniSONE 20 MG Tab PO SCH (06:30)
[2017-05-26] MEDS: Albuterol/Ipratropium 3.0-0.5 MG/3 ML Neb Soln NEB PRN ×2 (06:42→11:10)
[2017-05-26] MEDS ORDERED: Tiotropium Inhaler 18 MCG Inhalation Powder Cap Kit of 5 INH SCH (09:00)
[2017-05-26] MEDS: Triamcinolone Acetonide 0.5% Crm 15 GM Tube TOP SCH (09:30)
[2017-05-26] MEDS: Lisinopril 10 MG Tab PO SCH (09:31)
[2017-05-26] MEDS: Enoxaparin 40 MG/0.4 ML Syringe SUBCUT SCH (09:31)
[2017-05-26] MEDS: Montelukast 10 MG Tab PO SCH (09:31)
[2017-05-26] MEDS: Azithromycin 250 MG Tab PO SCH (09:32)
--- NOTE | 2017-05-26 09:53 | PCM.DCSUM1 ---
Discharge Summary - Hospital Course Brief History: This is a 61 yo white male with past medical hx/o Asthma/RAD and HTN who presents to ED with worsening shortness of breath that has been going on over the past week. He carries a hx/o heavy smoking for many years but quit 2 months ago. He has a neb at home to use for asthma attack. - Discharge Data Discharge Date: 05/26/17 Discharge Disposition: Home, Self-Care 01 Condition: Good - Discharge Diagnosis/Problem(s) (1) COPD (chronic obstructive pulmonary disease) SNOMED Code(s): 64407065 ICD Code: J44.9 - CHRONIC OBSTRUCTIVE PULMONARY DISEASE, UNSPECIFIED Status : Acute Qualifiers: COPD type: emphysema Emphysema type: unspecified Qualified Code(s): J43.9 - Emphysema, unspecified (2) ILD (interstitial lung disease) SNOMED Code(s): 968454671 ICD Code: J84.9 - INTERSTITIAL PULMONARY DISEASE, UNSPECIFIED Status: Acute - Patient Summary/Data Operative Procedure(s) Performed: None Complications: None Consults: Consultations 05/24/17 22:06 Consult to Case Management [CONS] Routine Consult to Associate Research Scientist [CONS] Routine Consult to Spiritual Care [CONS] Routine Respiratory Care Assess and Treatment [CONS] Routine Labs Pending at D/C: None Recommended Follow-up Testing/Procedures: None Planned Operative Procedure(s) after DC: None Hospital Course: Patient was primarily admitted for medical management of COPD due to underlying interstitial lung disease. He carried a history of heavy smoking as well as working in the [employer]. His PFT confirmed severe obstructive lung disease and his chest CT scan showed pulmonary fibrosis. He was put on steroids, bronchodilators, expectorant, decongestant and cough suppressant to improve his symptom. The patient improved on this regimen. His hospital course was uncomplicated and the rest of his chronic illness remained stable during this admission. Patient was stable upon discharge. He was discharged with advair, cough suppressant and supplemental O2 for his COPD. He was also provided with steroid cream to use for his skin rash. The patient was advised to see pulmonology after discharge and to follow-up with his PCP in one week. On the day of discharge, he was again counseled about smoking cessation. He was offered nicotine patch but patient quit 2 months ago and expressed no intentions of going back to smoking. - Patient Instructions Diet: Usual Diet as Tolerated Activity: As Tolerated Driving: May Drive Today Showering/Bathing: May Shower Notify Provider of: Fever, Nausea and/or Vomiting Other/Special Instructions: - Please take all new medications as directed. - Continue to stay away from smoking or using any tobacco products. - Call or follow up with your family doctor for any questions or concerns after discharge. - Recommend you see a lung specialist in [place] afer discharge. - Follow up with your doctor in 1 week - Discharge Plan Prescriptions/Med Rec: Benzonatate [Tessalon Perle] 100 mg PO TID #90 capsule Fluticasone/Salmeterol [Advair HFA 115-21 MCG] 2 puff INH BID #1 inhaler Triamcinolone Acetonide [Triamcinolone Acetonide 0.5%] 15 gm TOP BID #1 tube Home Medications: Home Meds Albuterol [Ventolin HFA] 2 puff INH Q4HR PRN 05/24/17 [History] Ipratropium/Albuterol Sulfate [Iprat-Albut 0.5-3(2.5) mg/3 ml] 3 ml INH Q6HR PRN 05/24/17 [History] Lisinopril 10 mg PO DAILY 05/24/17 [History] Montelukast [Singulair] 10 mg PO DAILY 05/24/17 [History] Benzonatate [Tessalon Perle] 100 mg PO TID #90 capsule 05/26/17 [Rx] Fluticasone/Salmeterol [Advair HFA 115-21 MCG] 2 puff INH BID #1 inhaler [Rx] Triamcinolone Acetonide [Triamcinolone Acetonide 0.5%] 15 gm TOP BID #1 tube [Rx] Patient Handouts: Chronic Obstructive Pulmonary Disease, [id number] Referrals: Itz Hernandez MD [Ordering Only Provider] - 06/25/17 11:45 am (Pulmonology: This appt. is in [place] time. Please arrive at 11:45 to check in and breathing test scheduled at 12:30 and you will see the doctor at 2p.m. This appointment is for pulomonolgist) Tiana Barnard NP [Primary Care Provider] - - Discharge Summary/Plan Comment DC Time >30 min.: Yes (45 mins) Discharge Summary/Plan Comment: Discharge to Home - General Info Date of Service: 05/26/17 Admission Dx/Problem (Free Text: Admission Diagnosis/Problem Admission Diagnosis/Problem Hypoxia Subjective Update: Follow Up Functional Status: Reports: Pain Controlled, Tolerating Diet, Ambulating, Urinating. Denies: New Symptoms - Review of Systems General: Denies: Fever, Weakness, Fatigue, Malaise, Chills HEENT: Reports: No Symptoms Pulmonary: Denies: Shortness of Breath, Cough, Sputum, Wheezing Cardiovascular: Denies: Chest Pain, Palpitations, Dyspnea on Exertion, Orthopnea , Edema, Lightheadedness Gastrointestinal: Reports: [place]. Denies: Abdominal Pain, Constipation, Diarrhea, Nausea, Vomiting Genitourinary: Reports: No Symptoms Musculoskeletal: Reports: No Symptoms Skin: Denies: Cyanosis, Mottled, Pallor, Diaphoresis Neurological: Denies: Confusion, Weakness, Gait Disturbance Psychiatric: Denies: Depression, Anxiety, Agitation, Hallucinations Systems Review Comment: No overnight or acute issues. He slept pretty good and overall feels better. He has no new complaints. - Patient Data Vitals - Most Recent: Last Vital Signs Temp 36.4 C 05/26/17 07:43 Pulse 65 05/26/17 07:43 Resp 17 05/26/17 07:43 BP 127/79 05/26/17 09:31 Pulse Ox 89 L 05/26/17 08:16 Weight - Most Recent: 112.973 kg I&O - Last 24 hours: Intake & Output 05/25/17 05/26/17 05/26/17 22:59 06:59 14:59 Intake Total 780 400 Output Total 560 200 Balance 220 200 Lab Results - Last 24 hrs: Laboratory Results - last 24 hr 05/26/17 05/26/17 Range/Units 07:30 07:30 WBC 10.32 H (4.23-9.07) K/mm3 RBC 4.94 (4.63-6.08) M/mm3 Hgb 15.4 (13.7-17.5) gm/L Hct 47.7 (40.1-51.0) % MCV 96.6 H (79.0-92.2) fl MCH 31.2 (25.7-32.2) pg MCHC 32.3 (32.2-35.5) g/dl RDW Std Deviation 52.0 H (35.1-43.9) fL Plt Count 222 (163-337) K/mm3 MPV 9.4 (9.4-12.3) fl Neut % (Auto) 71.8 H (34.0-67.9) % Lymph % (Auto) 16.7 L (21.8-53.1) % [place] % (Auto) 10.5 (5.3-12.2) % Eos % (Auto) 0.8 (0.8-7.0) Baso % (Auto) 0.2 (0.1-1.2) % Neut # (Auto) 7.42 H (1.78-5.38) K/mm3 Lymph # (Auto) 1.72 (1.32-3.57) K/mm3 [place] # (Auto) 1.08 H (0.30-0.82) K/mm3 Eos # (Auto) 0.08 (0.04-0.54) K/mm3 Baso # (Auto) 0.02 (0.01-0.08) K/mm3 Sodium 144 (136-145) mEq/L Potassium 4.9 (3.5-5.1) mEq/L Chloride 106 (98-107) mEq/L Carbon Dioxide 31 (21-32) mEq/L Anion Gap 11.9 (5-15) BUN 28 H (7-18) mg/dL Creatinine 1.0 (0.7-1.3) mg/dL Est Cr Clr Drug Dosing 80.53 mL/min Estimated GFR (MDRD) > 60 (>60) mL/min BUN/Creatinine Ratio 28.0 H (14-18) Glucose 99 (80-115) mg/dL Calcium 8.8 (8.5-10.1) mg/dL Magnesium 2.2 (1.8-2.4) mg/dl C-Reactive Protein < 0.2 (<1.0) mg/dL Med Orders - Current: Current Medications Acetaminophen (Tylenol) 650 mg PO Q4H PRN PRN Reason: Pain (Mild 1-3)/fever Hydrocodone Bitart/Acetaminophen ([place] 325-5 Mg) 1 tab PO Q4H PRN PRN Reason: Pain (moderate 4-6) Albuterol/Ipratropium (Duoneb 3.0-0.5 Mg/3 Ml) 3 ml NEB Q4H PRN PRN Reason: Shortness Of Breath/wheezing Last Admin: 05/26/17 06:42 Dose: 3 ml Azithromycin (Zithromax) 250 mg PO DAILY [facility] Last Admin: 05/26/17 09:32 Dose: 250 mg Bisacodyl (Dulcolax) 5 mg PO DAILY PRN PRN Reason: Constipation Docusate Sodium (Colace) 100 mg PO BID PRN PRN Reason: Constipation Enoxaparin Sodium (Lovenox) 40 mg SUBCUT DAILY [facility] Last Admin: 05/26/17 09:31 Dose: 40 mg Hydralazine HCl (Apresoline) 20 mg IVPUSH Q4H PRN PRN Reason: Hypertension Promethazine HCl 12.5 mg/ (Sodium Chloride) 50.5 mls @ 100 mls/hr IV Q6H PRN PRN Reason: Nausea/Vomiting Lisinopril (Prinivil) 10 mg PO DAILY [facility] Last Admin: 05/26/17 09:31 Dose: 10 mg Lorazepam (Ativan) 1 mg IV Q6H PRN PRN Reason: Anxiety Lorazepam (Ativan) 2 mg IVPUSH Q4H PRN PRN Reason: Seizures Magnesium Sulfate (Pharmacy To Dose - Magnesium Replacement) 1 dose .XX ASDIRECTED [facility] Metoprolol Tartrate (Lopressor) 5 mg IVPUSH Q4H PRN PRN Reason: Tachycardia Montelukast Sodium (Singulair) 10 mg PO DAILY [facility] Last Admin: 05/26/17 09:31 Dose: 10 mg Ondansetron HCl (Zofran) 4 mg IV Q6H PRN PRN Reason: Nausea/Vomiting Polyethylene Glycol (Miralax) 17 gm PO DAILY PRN PRN Reason: Constipation Potassium Chloride (Pharmacy To Dose - Potassium Replacement) 1 dose .XX ASDIRECTED [facility] Prednisone (Prednisone) 60 mg PO WITHBREAKFAST [facility] Last Admin: 05/26/17 06:30 Dose: 60 mg Senna/Docusate Sodium (Senna Plus) 1 tab PO BID PRN PRN Reason: Constipation Sodium Chloride (Saline Flush) 10 ml FLUSH ASDIRECTED PRN PRN Reason: Keep Vein Open Last Admin: 05/24/17 17:14 Dose: 10 ml Sodium Chloride (Saline Flush) 10 ml FLUSH ONETIME PRN PRN Reason: IV FLUSH Last Admin: 05/24/17 18:32 Dose: 10 ml Temazepam (Restoril) 15 mg PO BEDTIME PRN PRN Reason: Sleep Tiotropium [place] (Spiriva Handihaler) 18 mcg INH DAILY [facility] Last Admin: 05/26/17 08:16 Dose: 1 cap Triamcinolone Acetonide (Triamcinolone Acetonide 0.5%) 15 gm TOP BID [facility] Last Admin: 05/26/17 09:30 Dose: 1 applic Discontinued Medications Albuterol (Proventil Neb Soln) 2.5 mg NEB ONETIME ONE Stop: 05/25/17 08:51 Last Admin: 05/25/17 08:52 Dose: 2.5 mg Albuterol/Ipratropium (Duoneb 3.0-0.5 Mg/3 Ml) 3 ml NEB ONETIME ONE Stop: 05/24/17 16:32 Last Admin: 05/24/17 16:49 Dose: 3 ml Sodium Chloride (Normal Saline) 100 mls @ 65 mls/hr IV ASDIRECTED [facility] Last Admin: 05/24/17 18:32 Dose: 65 mls/hr Azithromycin 500 mg/ Sodium (Chloride) 250 mls @ 250 mls/hr IV ONETIME ONE Stop: 05/24/17 23:29 Last Admin: 05/24/17 22:49 Dose: 250 mls/hr Iopamidol (Isovue-370 (76%)) 100 ml IVPUSH ONETIME ONE Stop: 05/24/17 17:54 Last Admin: 18 18:32 Dose: 100 ml Iopamidol (Isovue-370 (76%)) 50 ml IVPUSH ONETIME ONE Stop: 05/24/17 17:54 Last Admin: 05/24/17 18:32 Dose: 50 ml Levalbuterol HCl (Xopenex) 1.25 mg NEB ONETIME ONE Stop: 05/24/17 18:41 Last Admin: 05/24/17 18:54 Dose: 1.25 mg Pantoprazole Sodium (Protonix Iv) 40 mg .XX ONETIME ONE Stop: 05/24/17 22:31 Last Admin: 05/24/17 22:46 Dose: 40 mg Pneumococcal Polyvalent Vaccine (Pneumovax 23) 0.5 ml IM .ONCE ONE Stop: 05/24/17 21:13 Prednisone (Prednisone) 60 mg PO ONETIME ONE Stop: 05/24/17 19:18 Last Admin: 05/24/17 19:27 Dose: 60 mg - Exam Quality Assessment: Reports: Supplemental Oxygen General: Reports: Alert, Oriented, Cooperative, No Acute Distress HEENT: Reports: Pupils Equal, Pupils Reactive, EOMI, Mucous Membr. Moist/[place] Neck: Reports: Supple, Trachea Midline, No JVD Lungs: Reports: Clear to Auscultation, Normal Respiratory Effort Cardiovascular: Reports: Regular Rate, Regular Rhythm GI/Abdominal Exam: Normal Bowel Sounds, Soft, Non-Tender, No Organomegaly, No Distention, No Abnormal Bruit, No Mass (Male) Exam: Deferred Rectal (Males) Exam: Deferred Back Exam: Reports: Normal Inspection, Decreased Range of Motion Extremities: Normal Inspection, Normal Range of Motion, Non-Tender, No Pedal Edema, Normal Capillary Refill Skin: Reports: Warm, Dry, Intact Neurological: Reports: No New Focal Deficit Psy/Mental Status: Reports: Alert, Normal Affect, Normal Mood *Q Meaningful Use (DIS) - VTE *Q VTE Criteria *Q: - Stroke *Q Stroke Criteria *Q: - AMI *Q AMI Criteria *Q:
[2017-05-26] MEDS ORDERED: Benzonatate 100 MG Cap PO PRN (11:26)
[2017-05-26 12:38] VITALS: BP 132/78
[2017-05-26] MEDS ORDERED: Benzonatate 100 MG Cap PO SCH (15:00)
== END 2017-05-26 13:05 | disposition home or self-care (01) | DRG 141 ==
LOC: JD.ED 16:02 → JD.MS 20:45
PROVIDERS: ADMIT Internal Medicine; ATTEND Internal Medicine
PROC: 3E0234Z Introduction of Serum, Toxoid and Vaccine into Muscle, Percutaneous Approach (ICD-10-PCS; principal; 2017-05-26)
DX: J45.901 Unspecified asthma with (acute) exacerbation (principal); J43.9 Emphysema, unspecified; J84.9 Interstitial pulmonary disease, unspecified; I10 Essential (primary) hypertension; Z87.891 Personal history of nicotine dependence; G47.33 Obstructive sleep apnea (adult) (pediatric); R21 Rash and other nonspecific skin eruption; N42.9 Disorder of prostate, unspecified; Z23 Encounter for immunization; Z79.899 Other long term (current) drug therapy
CPT/HCPCS: 36415; 36600; 71045; 71045-26; 71275; 71275-26; 80048; 80053; 82803; 83735; 84484; 85025; 86140; 90471; 90732; 93005; 93306; 94060; 94640; 94664; 94729; 94761; 99285; 99285-25; A9270; A9270-GY; C9113; G0009; J0456; J1650; J7030; J7050; Q9967

== ENCOUNTER → 2020-01-24 | Day surgery (SDC) | payer MEDICARE, OTHER ==
[~2020-01-24] MED LIST: Ketamine 500 mg/10 ML MDV ONE; Lactated Ringers 1,000 ML IV SCH; Lidocaine 1% 4 ML ONE; Lidocaine 1%/Sod Bicarbonate in NS 8.4% 1 ML Syringe IDERM PRN; Propofol 200 MG/20 ML SDV ONE; Sodium Chloride 0.9% 10 ML Syringe FLUSH PRN
--- NOTE | 2020-01-24 08:28 | PCM.PREANE ---
Preanesthetic Assessment - Anesthesia/Transfusion/Family Hx Anesthesia History: Prior Anesthesia Without Reaction Family History of Anesthesia Reaction: No Transfusion History: No Prior Transfusion(s) - Review of Systems General: No Symptoms Pulmonary: No Symptoms Cardiovascular: No Symptoms Gastrointestinal: No Symptoms Neurological: No Symptoms Other: Reports: None - Physical Assessment NPO Status Date: 01/24/20 NPO Status Time: 04:30 ASA Class: 3 Mental Status: Alert & Oriented x3 Airway Class: Mallampati = 2 Dentition: Reports: Normal Dentition, Missing Tooth/Teeth Thyro-Mental Finger Breadths: 3 Mouth Opening Finger Breadths: 3 ROM/Head Extension: Full Lungs: Clear to Auscultation, Normal Respiratory Effort Cardiovascular: Regular Rate, Regular Rhythm - Allergies Allergies/Adverse Reactions: Allergies Allergy/AdvReac Type Severity Reaction Status Date / Time contact metal agent Allergy Rash Verified 01/23/20 14:07 - Acknowledgements Anesthesia Type Planned: MAC Pt an Appropriate Candidate for the Planned Anesthesia: Yes Alternatives and Risks of Anesthesia Discussed w Pt/Guardian: Yes Pt/Guardian Understands and Agrees with Anesthesia Plan: Yes PreAnesthesia Questionnaire HEENT History: Reports: Allergic Rhinitis Cardiovascular History: Reports: High Cholesterol, Hypertension, SOB on Exertion, Other (See Below) Other Cardiovascular History: chest pain, varicose vein ligation Respiratory History: Reports: Asthma, Bronchitis, Recurrent, COPD, Sleep Apnea Gastrointestinal History: Reports: Colon Polyp, Hemorrhoids Genitourinary History: Reports: None 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 Musculoskeletal History: Reports: Fracture Other Musculoskeletal History: previous rib fx's, left knee pain Neurological History: Reports: None Psychiatric History: Reports: None Endocrine/Metabolic History: Reports: Diabetes, Type II Hematologic History: Reports: None Immunologic History: Reports: None Oncologic (Cancer) History: Reports: Prostate Dermatologic History: Reports: None - Infectious Disease History Infectious Disease History: Reports: None - Past Surgical History Head Surgeries/Procedures: Reports: None HEENT Surgical History: Reports: Other (See Below) Other HEENT Surgeries/Procedures: sleep apnea surgery Cardiovascular Surgical History: Respiratory Surgical History: Reports: None GI Surgical History: Reports: Appendectomy, Colonoscopy, Other (See Below) Other GI Surgeries/Procedures: polyps removed Male Surgical History: Reports: Prostatectomy Endocrine Surgical History: Reports: None Neurological Surgical History: Reports: None Musculoskeletal Surgical History: Reports: None Oncologic Surgical History: Reports: None Dermatological Surgical History: Reports: None - SUBSTANCE USE Tobacco Use Status *Q: Former Tobacco User Recreational Drug Use History: No - HOME MEDS Home Medications: Home Meds Albuterol [Ventolin HFA] 2 puff INH Q4HR PRN 05/24/17 [History] Ipratropium/Albuterol Sulfate [Iprat-Albut 0.5-3(2.5) mg/3 ml] 3 ml INH Q6HR PRN 05/24/17 [History] Lisinopril 10 mg PO DAILY 05/24/17 [History] Triamcinolone Acetonide [Triamcinolone Acetonide 0.5%] 15 gm TOP BID #1 tube 05/26/17 [Rx] Celecoxib 200 mg PO BID PRN 01/23/20 [History] Cholecalciferol (Vitamin D3) [Vitamin D3] 2,000 unit PO DAILY 01/23/20 [History] Fluticasone/Umeclidin/Vilanter [Trelegy Ellipta 100-62.5-25 MCG] 1 puff INH DAILY 01/23/20 [History] - CURRENT (IN HOUSE) MEDS Current Meds: Current Medications Lactated Ringer's (Ringers, Lactated) 1,000 mls @ 125 mls/hr IV ASDIRECTED DENNIS Stop: 01/24/20 13:00 Lidocaine/Sodium Bicarbonate (Buffered Lidocaine 1% In Ns 8.4%) 0.25 ml IDERM ONETIME PRN PRN Reason: Prior to IV Start Stop: 01/24/20 13:00 Sodium Chloride (Saline Flush) 10 ml FLUSH ASDIRECTED PRN PRN Reason: Keep Vein Open Stop: 01/24/20 13:00
--- NOTE | 2020-01-24 09:51 | PCM.PRNOTE ---
- Free Text/Narrative Note: Date: 01/24/2020 Procedure: screening colonoscopy Endoscopist: Bruce Chilel MD Findings: Cecum reached with colonoscope. Redundant colon requiring abdominal maneuvers and supine positioning to reach cecum. Prep was not very good. Large sigmoid diverticula. Detailed Report: The patient was taken to the endoscopy suite and placed in left lateral decubitus position. Time out was performed and monitored anesthesia care was initiated. Visual inspection of the anus revealed no abnormality. Digital rectal exam was unremarkable. The lubricated colonoscope was then inserted and advanced all the way to the cecum. The ileocecal valve and appendiceal orifice were visualized. The prep was not very good. On slow withdrawal of the scope, mucosal surfaces were carefully irrigated and inspected. No polyps were identified. There were several large diverticula within the sigmoid. On retroflexion within the rectum no abnormality was noted. Air was suctioned prior to removal of the scope. The patient tolerated the procedure well.
--- NOTE | 2020-01-24 10:02 | PCM48HPAN ---
Post Anesthesia Note - EVALUATION WITHIN 48HRS OF ANESTHETIC Vital Signs in Normal Range: Yes Patient Participated in Evaluation: Yes Respiratory Function Stable: Yes Airway Patent: Yes Cardiovascular Function Stable: Yes Hydration Status Stable: Yes Pain Control Satisfactory: Yes Nausea and Vomiting Control Satisfactory: Yes Mental Status Recovered: Yes Vital Signs: Last Vital Signs Temp 36.7 C 01/24/20 08:46 Pulse 79 01/24/20 08:46 Resp 22 H 01/24/20 08:46 BP 154/88 H 01/24/20 08:46 Pulse Ox 94 L 01/24/20 08:46
[2020-01-24 11:13] VITALS: BP 139/81; PULSE 70
== END | disposition home or self-care (01) ==
LOC: JD.SDS 07:58
PROVIDERS: ATTEND Surgery
DX: Z12.11 Encounter for screening for malignant neoplasm of colon (principal); K57.30 Diverticulosis of large intestine without perforation or abscess without bleeding; J44.9 Chronic obstructive pulmonary disease, unspecified; I10 Essential (primary) hypertension; E11.9 Type 2 diabetes mellitus without complications; R07.9 Chest pain, unspecified; G47.33 Obstructive sleep apnea (adult) (pediatric); E78.00 Pure hypercholesterolemia, unspecified; Z01.812 Encounter for preprocedural laboratory examination; Z20.828 Contact with and (suspected) exposure to other viral communicable diseases; Z91.048 Other nonmedicinal substance allergy status; Z79.899 Other long term (current) drug therapy; Z85.46 Personal history of malignant neoplasm of prostate; Z87.891 Personal history of nicotine dependence
CPT/HCPCS: G0121; J2001; J2704; J7120; 00812

== ENCOUNTER 2021-02-10 14:37 | Emergency (ER) | payer MEDICARE, OTHER ==
[2021-02-10 14:56] VITALS: BP 159/97; PULSE 88
[2021-02-10] MEDS ORDERED: Albuterol/Ipratropium 3.0-0.5 MG/3 ML Neb Soln NEB ONE (15:31)
[2021-02-10] MEDS ORDERED: Sodium Chloride 0.9% 10 ML Syringe FLUSH PRN (15:31)
[2021-02-10] MEDS ORDERED: methylPREDNISolone Sodium Succinate 125 MG/2 ML SDV IVPUSH ONE (15:31)
--- NOTE | 2021-02-10 15:37 | EDM.PDOC ---
ED HPI GENERAL MEDICAL PROBLEM - General Chief Complaint: Respiratory Problem Stated Complaint: SOB COUGH Time Seen by Provider: 02/10/21 14:53 Source of Information: Reports: Patient, RN Notes Reviewed - History of Present Illness INITIAL COMMENTS - FREE TEXT/NARRATIVE: 65 yr old male has had worsening cough, dyspnea, worsening difficulty breathing for 1 week and especially the last 2 days. No fever or chills. No chest pain. Hx of COPD, hx of prior pneumonia. Has had Moderna vaccine times 2. - Related Data Allergies Allergy/AdvReac Type Severity Reaction Status Date / Time contact metal agent Allergy Rash Verified 01/23/20 14:07 Home Meds: Home Meds Albuterol [Ventolin HFA] 2 puff INH Q4HR PRN 05/24/17 [History] Ipratropium/Albuterol Sulfate [Iprat-Albut 0.5-3(2.5) mg/3 ml] 3 ml INH Q6HR PRN 05/24/17 [History] Lisinopril 10 mg PO DAILY 05/24/17 [History] Triamcinolone Acetonide [Triamcinolone Acetonide 0.5%] 15 gm TOP BID #1 tube 05/26/17 [Rx] Celecoxib 200 mg PO BID PRN 01/23/20 [History] Cholecalciferol (Vitamin D3) [Vitamin D3] 2,000 unit PO DAILY 01/23/20 [History] Fluticasone/Umeclidin/Vilanter [Trelegy Ellipta 100-62.5-25 MCG] 1 puff INH DAILY 01/23/20 [History] Past Medical History HEENT History: Reports: Allergic Rhinitis Cardiovascular History: Reports: High Cholesterol, Hypertension, SOB on Exertion, Other (See Below) Other Cardiovascular History: chest pain, varicose vein ligation Respiratory History: Reports: Asthma, Bronchitis, Recurrent, COPD, Sleep Apnea Gastrointestinal History: Reports: Colon Polyp, Hemorrhoids Genitourinary History: Reports: None 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 Musculoskeletal History: Reports: Fracture Other Musculoskeletal History: previous rib fx's, left knee pain Neurological History: Reports: None Psychiatric History: Reports: None Endocrine/Metabolic History: Reports: Diabetes, Type II Hematologic History: Reports: None Immunologic History: Reports: None Oncologic (Cancer) History: Reports: Prostate Dermatologic History: Reports: None - Infectious Disease History Infectious Disease History: Reports: None - Past Surgical History Head Surgeries/Procedures: Reports: None HEENT Surgical History: Reports: Other (See Below) Other HEENT Surgeries/Procedures: sleep apnea surgery Cardiovascular Surgical History: Respiratory Surgical History: Reports: None GI Surgical History: Reports: Appendectomy, Colonoscopy, Other (See Below) Other GI Surgeries/Procedures: polyps removed Male Surgical History: Reports: Prostatectomy Endocrine Surgical History: Reports: None Neurological Surgical History: Reports: None Musculoskeletal Surgical History: Reports: None Oncologic Surgical History: Reports: None Dermatological Surgical History: Reports: None Social & Family History - Family History Family Medical History: No Pertinent Family History - Caffeine Use Caffeine Use: Reports: Coffee - Living Situation & Occupation Living situation: Reports: , with Family Occupation: Employed ED ROS GENERAL - Review of Systems Review Of Systems: See Below Constitutional: Denies: Fever, Chills, Diaphoresis HEENT: Denies: Sinus Problem, Throat Pain Respiratory: Reports: Shortness of Breath, Wheezing, Cough, Sputum (scant) Cardiovascular: Denies: Chest Pain GI/Abdominal: Denies: Abdominal Pain, Nausea, Vomiting Musculoskeletal: Denies: Shoulder Pain, Arm Pain Neurological: Reports: Dizziness, Difficulty Walking (due to shortness of breath). Denies: Trouble Speaking ED EXAM, GENERAL - Physical Exam Exam: See Below General Appearance: Alert, No Apparent Distress (on oxygen) Eye Exam: Bilateral Eye: PERRL Throat/Mouth: Normal Inspection Head: Atraumatic Neck: Supple Respiratory/Chest: Respiratory Distress (mild tachypnea), Rhonchi, Wheezing Cardiovascular: Regular Rate, Rhythm GI/Abdominal: Soft, Non-Tender Extremities: Normal Inspection. No: Pedal Edema, Leg Pain Neurological: Alert, Oriented, No Motor/Sensory Deficits #1 Interpretation EKG Date: 02/10/21 [place]: Normal P-Wave: Present QRS: Normal ST-T: Normal Course - Vital Signs Last Recorded V/S: Last Vital Signs Temp 98.7 F 02/10/21 14:50 Pulse 88 02/10/21 14:50 Resp 22 H 02/10/21 14:50 BP 159/97 H 02/10/21 14:50 Pulse Ox 93 L 02/10/21 17:35 - Orders/Labs/Meds Orders: Active Orders 24 hr Category Date Time Status Peripheral IV Insertion Adult [OM.PC] Stat Oth 02/10/21 15:31 Ordered Labs: Laboratory Tests 02/10/21 02/10/21 02/10/21 Range/Units 15:15 15:15 15:15 WBC 8.42 (4.23-9.07) K/mm3 RBC 5.10 (4.63-6.08) M/mm3 Hgb 16.2 (13.7-17.5) gm/dl Hct 49.3 (40.1-51.0) % MCV 96.7 H (79.0-92.2) fl MCH 31.8 (25.7-32.2) pg MCHC 32.9 (32.2-35.5) g/dl RDW Std Deviation 46.9 H (35.1-43.9) fL Plt Count 212 (163-337) K/mm3 MPV 9.5 (9.4-12.3) fl Neut % (Auto) 68.1 H (34.0-67.9) % Lymph % (Auto) 16.3 L (21.8-53.1) % [place] % (Auto) 7.6 (5.3-12.2) % Eos % (Auto) 7.2 H (0.8-7.0) Baso % (Auto) 0.7 (0.1-1.2) % Neut # (Auto) 5.73 H (1.78-5.38) K/mm3 Lymph # (Auto) 1.37 (1.32-3.57) K/mm3 [place] # (Auto) 0.64 (0.30-0.82) K/mm3 Eos # (Auto) 0.61 H (0.04-0.54) K/mm3 Baso # (Auto) 0.06 (0.01-0.08) K/mm3 D-Dimer, Quantitative (0.19-0.50) mg/L Puncture Site ABG pH (7.35-7.45) ABG pCO2 (35.0-45.0) mmHg ABG pO2 (80.0-100.0) mmHg ABG HCO3 (22.0-26.0) meq/L ABG O2 Saturation (96.0-97.0) % ABG Base Excess (-2-2.0) Raman Test A-a Gradient mmHg O2 Delivery Device FiO2 (21.00-100.00) % Sodium 139 (136-145) mEq/L Potassium 4.0 (3.5-5.1) mEq/L Chloride 102 (98-107) mEq/L Carbon Dioxide 28 (21-32) mEq/L Anion Gap 13.0 (5-15) BUN 13 (7-18) mg/dL Creatinine 1.2 (0.7-1.3) mg/dL Est Cr Clr Drug Dosing 63.62 mL/min Estimated GFR (MDRD) > 60 (>60) mL/min BUN/Creatinine Ratio 10.8 L (14-18) Glucose 115 H (70-99) mg/dL Calcium 8.8 (8.5-10.1) mg/dL Total Bilirubin 0.4 (0.2-1.0) mg/dL AST 15 (15-37) U/L ALT 22 (16-63) U/L Alkaline Phosphatase 73 (46-116) U/L C-Reactive Protein 0.5 (<1.0) mg/dL NT-Pro-B Natriuret Pep (0-125) pg/mL Total Protein 7.4 (6.4-8.2) g/dl Albumin 3.7 (3.4-5.0) g/dl Globulin 3.7 gm/dL Albumin/Globulin Ratio 1.0 (1-2) Influenza Type A RNA (NEGATIVE) Influenza Type B RNA (NEGATIVE) SARS-CoV-2 RNA ([facility]) (NEGATIVE) 02/10/21 02/10/21 02/10/21 Range/Units 15:15 15:15 16:14 WBC (4.23-9.07) K/mm3 RBC (4.63-6.08) M/mm3 Hgb (13.7-17.5) gm/dl Hct (40.1-51.0) % MCV (79.0-92.2) fl MCH (25.7-32.2) pg MCHC (32.2-35.5) g/dl RDW Std Deviation (35.1-43.9) fL Plt Count (163-337) K/mm3 MPV (9.4-12.3) fl Neut % (Auto) (34.0-67.9) % Lymph % (Auto) (21.8-53.1) % [place] % (Auto) (5.3-12.2) % Eos % (Auto) (0.8-7.0) Baso % (Auto) (0.1-1.2) % Neut # (Auto) (1.78-5.38) K/mm3 Lymph # (Auto) (1.32-3.57) K/mm3 [place] # (Auto) (0.30-0.82) K/mm3 Eos # (Auto) (0.04-0.54) K/mm3 Baso # (Auto) (0.01-0.08) K/mm3 D-Dimer, Quantitative 0.55 H (0.19-0.50) mg/L Puncture Site ABG pH (7.35-7.45) ABG pCO2 (35.0-45.0) mmHg ABG pO2 (80.0-100.0) mmHg ABG HCO3 (22.0-26.0) meq/L ABG O2 Saturation (96.0-97.0) % ABG Base Excess (-2-2.0) Raman Test A-a Gradient mmHg O2 Delivery Device FiO2 (21.00-100.00) % Sodium (136-145) mEq/L Potassium (3.5-5.1) mEq/L Chloride (98-107) mEq/L Carbon Dioxide (21-32) mEq/L Anion Gap (5-15) BUN (7-18) mg/dL Creatinine (0.7-1.3) mg/dL Est Cr Clr Drug Dosing mL/min Estimated GFR (MDRD) (>60) mL/min BUN/Creatinine Ratio (14-18) Glucose (70-99) mg/dL Calcium (8.5-10.1) mg/dL Total Bilirubin (0.2-1.0) mg/dL AST (15-37) U/L ALT (16-63) U/L Alkaline Phosphatase (46-116) U/L C-Reactive Protein (<1.0) mg/dL NT-Pro-B Natriuret Pep 41 (0-125) pg/mL Total Protein (6.4-8.2) g/dl Albumin (3.4-5.0) g/dl Globulin gm/dL Albumin/Globulin Ratio (1-2) Influenza Type A RNA Negative (NEGATIVE) Influenza Type B RNA Negative (NEGATIVE) SARS-CoV-2 RNA ([facility]ENN) Negative (NEGATIVE) 02/10/21 Range/Units 16:42 WBC (4.23-9.07) K/mm3 RBC (4.63-6.08) M/mm3 Hgb (13.7-17.5) gm/dl Hct (40.1-51.0) % MCV (79.0-92.2) fl MCH (25.7-32.2) pg MCHC (32.2-35.5) g/dl RDW Std Deviation (35.1-43.9) fL Plt Count (163-337) K/mm3 MPV (9.4-12.3) fl Neut % (Auto) (34.0-67.9) % Lymph % (Auto) (21.8-53.1) % [place] % (Auto) (5.3-12.2) % Eos % (Auto) (0.8-7.0) Baso % (Auto) (0.1-1.2) % Neut # (Auto) (1.78-5.38) K/mm3 Lymph # (Auto) (1.32-3.57) K/mm3 [place] # (Auto) (0.30-0.82) K/mm3 Eos # (Auto) (0.04-0.54) K/mm3 Baso # (Auto) (0.01-0.08) K/mm3 D-Dimer, Quantitative (0.19-0.50) mg/L Puncture Site Lt radial ABG pH 7.36 (7.35-7.45) ABG pCO2 48.9 H (35.0-45.0) mmHg ABG pO2 53.0 L (80.0-100.0) mmHg ABG HCO3 26.7 H (22.0-26.0) meq/L ABG O2 Saturation 83.4 L (96.0-97.0) % ABG Base Excess 0.8 (-2-2.0) Raman Test Positive A-a Gradient 36 mmHg O2 Delivery Device Room air FiO2 21.00 (21.00-100.00) % Sodium (136-145) mEq/L Potassium (3.5-5.1) mEq/L Chloride (98-107) mEq/L Carbon Dioxide (21-32) mEq/L Anion Gap (5-15) BUN (7-18) mg/dL Creatinine (0.7-1.3) mg/dL Est Cr Clr Drug Dosing mL/min Estimated GFR (MDRD) (>60) mL/min BUN/Creatinine Ratio (14-18) Glucose (70-99) mg/dL Calcium (8.5-10.1) mg/dL Total Bilirubin (0.2-1.0) mg/dL AST (15-37) U/L ALT (16-63) U/L Alkaline Phosphatase (46-116) U/L C-Reactive Protein (<1.0) mg/dL NT-Pro-B Natriuret Pep (0-125) pg/mL Total Protein (6.4-8.2) g/dl Albumin (3.4-5.0) g/dl Globulin gm/dL Albumin/Globulin Ratio (1-2) Influenza Type A RNA (NEGATIVE) Influenza Type B RNA (NEGATIVE) SARS-CoV-2 RNA ([facility]ENN) (NEGATIVE) Meds: Medications Discontinued Medications Generic Name Dose Route Start Last Admin Trade Name Freq PRN Reason Stop Dose Admin Albuterol 2.5 mg 02/10/21 17:28 02/10/21 17:35 Albuterol 0.083% 2.5 Mg/3 Ml Neb Soln NEB 02/10/21 17:29 2.5 mg ONETIME ONE Administration Albuterol/Ipratropium 3 ml 02/10/21 15:31 02/10/21 15:43 Albuterol/Ipratropium 3.0-0.5 Mg/3 Ml Neb Soln NEB 02/10/21 15:32 3 ml ONETIME ONE Administration Methylprednisolone Sodium Succinate 125 mg 02/10/21 15:31 02/10/21 16:13 Methylprednisolone Sodium Succinate 125 Mg/2 Ml Sdv IVPUSH 02/10/21 15:32 125 mg ONETIME ONE Administration Sodium Chloride 10 ml 02/10/21 15:31 02/10/21 16:13 Sodium Chloride 0.9% 10 Ml Syringe FLUSH 10 ml ASDIRECTED PRN Administration Keep Vein Open - Re-Assessments/Exams Free Text/Narrative Re-Assessment/Exam: 02/10/21 17:31 WBC 8,400. CRP 0.5. DD 0.55. P02 53, 7.36, 26.7. CXR normal, no infiltrate, covid neg. He has had a duoneb, solumedroL IV. Still has mild to moderate wheezing. Will repeat albuterol neb. Sats are 92 to 94 with 2 L NC. 02/10/21 17:46. Getting an albuterol neb., states he feels a lot better than he did before and on arrival. Will Check with [facility] about setting him up with home oxygen. Pt prefers to go home this evening rather than spend the night in the ED and than go home tomorrow which has been offered to patient as an option. 02/10/21 18:01. Our RT tech has contacted [facility]. They can provide home O2 but unfortunately medicare may not cover this because they consider this acute (Exacerbation COPD). [facility] staff person will talk to daughter. Pt and daughter are going to go to [facility] to get thee O2 stuff that they need. Discharge instr. as documented. Departure - Departure Time of Disposition: 19:17 Disposition: Home, Self-Care 01 Condition: Fair Clinical Impression: Hypoxia COPD (chronic obstructive pulmonary disease) Qualifiers: COPD type: emphysema Emphysema type: unspecified Qualified Code(s): J43.9 - Emphysema, unspecified - Discharge Information Instructions: Hypoxemia, Chronic Obstructive Pulmonary Disease, [id number] Referrals: PCP,Not In Area [Primary Care Provider] - Forms: ED Department Discharge Additional Instructions: Home oxygen at 2 L NC. See your regular medical provider tomorrow as planned. Prednisone 40 mg q AM for 3 days and than 20 mg q AM for 3 days. Continue albuteral nebs and other home meds as previously prescribed. Return to ED as needed. Sepsis Event Note (ED) - Focused Exam Vital Signs: Vital Signs Temp Pulse Resp BP Pulse Ox Pulse Ox Pulse Ox 02/10/21 17:35 93 L 02/10/21 16:42 83 L 02/10/21 15:31 92 L 02/10/21 14:50 98.7 F 88 22 H 159/97 H 93 L - My Orders Last 24 Hours: My Active Orders 02/10/21 15:31 Peripheral IV Insertion Adult [OM.PC] Stat - Assessment/Plan Last 24 Hours: My Active Orders 02/10/21 15:31 Peripheral IV Insertion Adult [OM.PC] Stat
[2021-02-10 17:03] LABS: CORONAVIRUS COVID-19 NAA NEGATIVE (NEGATIVE)
--- NOTE | 2021-02-10 17:18 | CR ---
Chest: Frontal view of the chest was obtained. Comparison: Prior chest x-ray of 12/26/19. Heart size and mediastinum are within normal limits. Lungs are clear with no acute parenchymal change being seen. Bony structures show an old healed right-sided rib fracture. Impression: 1. Nothing acute is appreciated on frontal chest x-ray. Diagnostic code #2
[2021-02-10] MEDS ORDERED: Albuterol 0.083% 2.5 MG/3 ML Neb Soln NEB ONE (17:28)
== END 2021-02-10 19:55 | disposition home or self-care (01) ==
LOC: JD.ED 14:37
DX: J43.9 Emphysema, unspecified (principal); R09.02 Hypoxemia; E78.00 Pure hypercholesterolemia, unspecified; I10 Essential (primary) hypertension; E11.9 Type 2 diabetes mellitus without complications; Z91.048 Other nonmedicinal substance allergy status; Z20.822 Contact with and (suspected) exposure to COVID-19; Z79.899 Other long term (current) drug therapy
CPT/HCPCS: 0240U; 36415; 36600; 71045; 80053; 82803; 83880; 85025; 85379; 86140; 93005; 94640; 96374; 99285; J2930; J7620-GY